=== PATIENT | male | born 1950 | race Caucasian/White ===

== ENCOUNTER 2018-06-26 21:53 | Outpatient (REF) | payer MEDICARE, BC, SELFPAY ==
[2018-06-26 22:19] LABS: Anion Gap 5.4 mmol/L (3-11); BUN 24 mg/dL (7-18); CO2 29.6 mmol/L (21.0-32.0); CREATININE 0.97 mg/dL (0.70-1.30); Calcium 9.1 mg/dL (8.5-10.1); Chloride 105 mmol/L (98-107); Cholesterol 140 mg/dL (50-200); Glucose 92 mg/dL (70-100); HDL Cholesterol 43 mg/dL (40-60); LDL CHOLESTEROL 83 mg/dL (<100); Potassium 5.1 mmol/L (3.5-5.1); Sodium 140 mmol/L (136-145); Triglyceride 111 mg/dL (30-150)
[2018-06-29 14:57] LABS: Testosterone, Free 4.89 ng/dL (3.47-13.0); Testosterone, Total 233 ng/dL (240-950)
== END 2018-06-26 22:13 ==
LOC: NCHCN 21:53
PROVIDERS: PCP Internal Medicine; Visit Provider Internal Medicine
DX: I25.10 Atherosclerotic heart disease of native coronary artery without angina pectoris (principal); H40.52X0 Glaucoma secondary to other eye disorders, left eye, stage unspecified
CPT/HCPCS: 80048; 80061; 83721; 84402; 84403

== ENCOUNTER 2020-04-13 14:45 | Outpatient (REF) | payer MEDICARE, BC, SELFPAY ==
[2020-04-13 21:20] LABS: ALT 31 U/L (16-63); AST 19 U/L (15-37); Albumin 4.3 g/dL (3.4-5.0); Alkaline Phosphatase 41 U/L (46-116); Anion Gap 9.3 mmol/L (3-11); BUN 17 mg/dL (7-18); Bilirubin, Total 0.9 mg/dL (0.2-1.0); CO2 25.7 mmol/L (21.0-32.0); CREATININE 0.87 mg/dL (0.70-1.30); Calcium 9.2 mg/dL (8.5-10.1); Calculated LDL 72 mg/dL (<100); Chloride 105 mmol/L (98-107); Cholesterol 130 mg/dL (<200); Glucose 99 mg/dL (74-106); HDL Cholesterol 43 mg/dL (40-60); Potassium 4.5 mmol/L (3.5-5.1); Sodium 140 mmol/L (136-145); Total Protein 6.9 g/dL (6.4-8.2); Triglyceride 78 mg/dL (<150)
== END 2020-04-13 15:05 ==
LOC: NCHCN 14:45
PROVIDERS: PCP Internal Medicine; Visit Provider Internal Medicine
DX: I10 Essential (primary) hypertension (principal); I25.10 Atherosclerotic heart disease of native coronary artery without angina pectoris; Z00.00 Encounter for general adult medical examination without abnormal findings
CPT/HCPCS: 80053; 80061

== ENCOUNTER 2021-04-21 16:47 | Outpatient (REF) | payer MEDICARE, BC, SELFPAY ==
[2021-04-21 21:04] LABS: HCT 38.2 % (40.0-50.0); MCH 31.1 pg (27.0-33.0); MCV 91.4 fL (80-95); MPV 11.4 fL (8.0-11.0); Platelet Count 184 10^3/uL (130-400); RBC 4.18 10^6/uL (4.36-5.78); RDW 12.5 % (11.8-14.1); RDW-SD 41.5 fL; WBC 7.51 10^3/uL (4.4-10.8)
[2021-04-21 21:31] LABS: Anion Gap 10.6 mmol/L (3-11); BUN 20 mg/dL (7-18); CO2 25.4 mmol/L (21.0-32.0); Calcium 9.2 mg/dL (8.5-10.1); Calculated LDL 73 mg/dL (<100); Chloride 106 mmol/L (98-107); Cholesterol 134 mg/dL (<200); Glucose 89 mg/dL (74-106); HDL Cholesterol 45 mg/dL (40-60); Potassium 4.1 mmol/L (3.5-5.1); Sodium 142 mmol/L (136-145); Triglyceride 83 mg/dL (<150)
[2021-04-22 18:31] LABS: PSA, Screening 1.5 ng/mL (0.0-6.5)
== END 2021-04-21 16:48 | disposition home or self-care (01) ==
LOC: NCHCN 16:47
PROVIDERS: PCP Internal Medicine; Visit Provider Internal Medicine
DX: I10 Essential (primary) hypertension (principal); I25.10 Atherosclerotic heart disease of native coronary artery without angina pectoris; Z12.5 Encounter for screening for malignant neoplasm of prostate
CPT/HCPCS: 80048; 80061; 84153; 85027

== ENCOUNTER 2022-06-30 16:56 | Outpatient (REF) | payer MEDICARE, BC, SELFPAY ==
[2022-06-30 21:07] LABS: HCT 39.3 % (40.0-50.0); HGB 13.6 g/dL (13.5-17.5); MCH 31.6 pg (27.0-33.0); MCHC 34.6 % (32.0-36.0); MCV 91 fL (80-95); MPV 11.4 fL (8.0-11.0); Platelet Count 206 10^3/uL (130-400); RBC 4.31 10^6/uL (4.36-5.78); RDW 12.9 % (11.8-14.1); RDW-SD 42.6 fL; WBC 7.72 10^3/uL (4.4-10.8)
[2022-06-30 21:21] LABS: Total Iron Binding Capacity 424 ug/dL (250-450)
[2022-06-30 21:42] LABS: BUN 22 mg/dL (7-18); CREATININE 0.9 mg/dL (0.70-1.30); Calculated LDL 60 mg/dL (<100); Chloride 105 mmol/L (98-107); Cholesterol 134 mg/dL (<200); Estimated GFR 90.74 (mL/min/1.73m2); Ferritin 33 ng/mL (26-388); Glucose 132 mg/dL (74-106); HDL Cholesterol 47 mg/dL (40-60); Sodium 139 mmol/L (136-145); Triglyceride 136 mg/dL (<150); Vitamin B12 384 pg/mL (193-986)
== END 2022-06-30 16:57 | disposition home or self-care (01) ==
LOC: NCHCN 16:56
PROVIDERS: PCP Internal Medicine; Visit Provider Internal Medicine
DX: I25.10 Atherosclerotic heart disease of native coronary artery without angina pectoris (principal); D64.9 Anemia, unspecified
CPT/HCPCS: 80048; 80061; 85027; 82607; 82728; 83550

== ENCOUNTER 2023-06-29 14:57 | Outpatient (REF) | payer MEDICARE, BC, SELFPAY ==
[2023-06-29 16:56] LABS: Abs Immature Grans 0.01 10^3/uL (0.0-0.06); Absolute Basophil Count 0.02 10^3/uL (0.0-0.2); Absolute Eosinophil Count 0.35 10^3/uL (0.0-0.7); Absolute Lymphocyte Count 1.95 10^3/uL (1.2-3.4); Absolute Monocyte Count 0.95 10^3/uL (0.1-0.8); Absolute Neutrophil Count 3.86 10^3/uL (1.2-6.7); Basophils % 0.3; Eosinophils % 4.9; HCT 40.3 % (40.0-50.0); HGB 13.8 g/dL (13.5-17.5); Immature Grans % 0.1; Lymphocytes % 27.3; MCH 31.5 pg (27.0-33.0); MCHC 34.2 % (32.0-36.0); MCV 92 fL (80-95); Monocytes % 13.3; Neutrophils % 54.1; Platelet Count 189 10^3/uL (130-400); RBC 4.38 10^6/uL (4.36-5.78); RDW 12.8 % (11.8-14.1); RDW-SD 43.3 fL; WBC 7.14 10^3/uL (4.4-10.8)
[2023-06-29 17:38] LABS: Anion Gap 6.9 mmol/L (3-11); BUN 25 mg/dL (7-18); CO2 27.1 mmol/L (21.0-32.0); Calcium 9.8 mg/dL (8.5-10.1); Chloride 105 mmol/L (98-107); Estimated GFR 79.47 (mL/min/1.73m2); Glucose 114 mg/dL (74-106); Potassium 4.6 mmol/L (3.5-5.1); Sodium 139 mmol/L (136-145)
== END 2023-06-29 14:58 | disposition home or self-care (01) ==
LOC: NCHCN 14:57
PROVIDERS: PCP Internal Medicine; Visit Provider Internal Medicine
DX: D64.9 Anemia, unspecified (principal); I10 Essential (primary) hypertension; I25.10 Atherosclerotic heart disease of native coronary artery without angina pectoris; Z00.00 Encounter for general adult medical examination without abnormal findings
CPT/HCPCS: 80048; 85025

== ENCOUNTER 2024-06-26 16:17 | Outpatient (REF) | payer MEDICARE, BC, SELFPAY ==
[2024-06-26 14:48] LABS: HCT 39.4 % (40.0-50.0); HGB 13.3 g/dL (13.5-17.5); MCH 31.1 pg (27.0-33.0); MCHC 33.8 % (32.0-36.0); MCV 92 fL (80-95); MPV 11.6 fL (8.0-11.0); Platelet Count 232 10^3/uL (130-400); RBC 4.28 10^6/uL (4.36-5.78); WBC 7.27 10^3/uL (4.4-10.8)
[2024-06-26 14:57] LABS: Anion Gap 7.7 mmol/L (3-11); BUN 21 mg/dL (7-18); CO2 27.3 mmol/L (21.0-32.0); Calcium 9.6 mg/dL (8.5-10.1); Calculated LDL 76 mg/dL (<100); Chloride 106 mmol/L (98-107); Cholesterol 132 mg/dL (<200); Estimated GFR 78.98 (mL/min/1.73m2); Glucose 105 mg/dL (74-106); HDL Cholesterol 42 mg/dL (40-60); Potassium 4.4 mmol/L (3.5-5.1); Sodium 141 mmol/L (136-145); Triglyceride 74 mg/dL (<150)
== END 2024-06-26 16:18 | disposition home or self-care (01) ==
LOC: NCHCN 16:17
PROVIDERS: PCP Internal Medicine; Visit Provider Internal Medicine
DX: I10 Essential (primary) hypertension (principal); D64.9 Anemia, unspecified
CPT/HCPCS: 80048; 80061; 85027

== ENCOUNTER 2025-06-29 08:37 | Outpatient (REF) | payer MEDICARE, BC, SELFPAY ==
[2025-06-29 15:15] LABS: HCT 40.6 % (40.0-50.0); HGB 13.7 g/dL (13.5-17.5); MCH 31.1 pg (27.0-33.0); MCHC 33.7 % (32.0-36.0); MCV 92 fL (80-95); MPV 11.5 fL (8.0-11.0); Platelet Count 202 10^3/uL (130-400); RBC 4.40 10^6/uL (4.36-5.78); RDW 13.1 % (11.8-14.1); RDW-SD 44.0 fL; WBC 7.96 10^3/uL (4.4-10.8)
[2025-06-29 15:27] LABS: ALT 36 U/L (16-63); AST 33 U/L (15-37); Albumin 4.1 g/dL (3.4-5.0); Alkaline Phosphatase 67 U/L (46-116); Anion Gap 7.8 mmol/L (3-11); BUN 18 mg/dL (7-18); Bilirubin, Total 1.1 mg/dL (0.2-1.0); CO2 28.2 mmol/L (21.0-32.0); Calcium 9.1 mg/dL (8.5-10.1); Calculated LDL 48 mg/dL (<100); Chloride 106 mmol/L (98-107); Cholesterol 104 mg/dL (<200); Estimated GFR 78.49 (mL/min/1.73m2); Glucose 128 mg/dL (74-106); HDL Cholesterol 44 mg/dL (>or=40); Potassium 4.9 mmol/L (3.5-5.1); Sodium 142 mmol/L (136-145); Total Protein 7.0 g/dL (6.4-8.2); Triglyceride 63 mg/dL (<150)
[2025-06-29 15:41] LABS: Hemoglobin A1C 5.9 % (<5.7)
== END 2025-06-29 08:38 | disposition home or self-care (01) ==
LOC: NCHCN 08:37
PROVIDERS: PCP Internal Medicine; Visit Provider Internal Medicine
DX: I25.10 Atherosclerotic heart disease of native coronary artery without angina pectoris (principal); D64.9 Anemia, unspecified; R73.01 Impaired fasting glucose
CPT/HCPCS: 80053; 80061; 85027; 83036